=== PATIENT | female | born 1940 | race Caucasian/White ===

== ENCOUNTER 2017-10-19 00:14 | Emergency (ER) | payer MEDICARE, OTHER ==
[2017-10-19] MEDS ORDERED: Diphtheria,Pertussis(Acell),Tetanus Vaccine 0.5 ML SDV IM ONE (01:03)
[2017-10-19] MEDS ORDERED: Acetaminophen 500 MG Tab PO ONE (01:04)
--- NOTE | 2017-10-19 01:10 | EDM.PDOC ---
ED HPI GENERAL MEDICAL PROBLEM - General Chief Complaint: Trauma Stated Complaint: FALL VIA [place] Time Seen by Provider: 10/19/17 00:50 Source of Information: Reports: Patient, Family History Limitations: Reports: No Limitations - History of Present Illness INITIAL COMMENTS - FREE TEXT/NARRATIVE: 77 yo female tripped on the side walk at the [employer] and injured her L wrist/hand and her L knee. Here via EMS with stable vitals. also here. 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) Left Knee/Wrist Pain Score (Numeric/FACES): 8 - Related Data Allergies Allergy/AdvReac Type Severity Reaction Status Date / Time acetaminophen [From Percocet] Allergy Depression Verified 01/24/16 22:23 albuterol Allergy Dizziness Verified 01/24/16 22:23 aspirin Allergy Abdominal Verified 01/24/16 22:23 Pain ciprofloxacin [From Cipro] Allergy Itching Verified 01/24/16 22:23 clarithromycin [From Biaxin] Allergy Dizziness Verified 01/24/16 22:23 desloratadine [From Clarinex] Allergy Rash Verified 01/24/16 22:23 diazepam Allergy Seizure Verified 01/24/16 22:23 diphenhydramine Allergy Other Verified 01/24/16 22:23 [From Benadryl] fentanyl Allergy Headache Verified 01/24/16 22:23 gemifloxacin [From Factive] Allergy Rash Verified 01/24/16 22:23 hydrocodone Allergy Seizure Verified 01/24/16 22:23 ibuprofen [From Motrin] Allergy Hypertensio Verified 01/24/16 22:23 n iodine Allergy Hives Verified 01/24/16 22:23 lansoprazole [From Prevacid] Allergy Nausea Verified 01/24/16 22:23 latex Allergy Redness Verified 01/24/16 22:23 levofloxacin [From Levaquin] Allergy Diarrhea Verified 01/24/16 22:23 midazolam [From Versed] Allergy Headache Verified 01/24/16 22:23 morphine Allergy Vomiting Verified 01/24/16 22:23 nitrofurantoin Allergy Cannot Verified 01/24/16 22:23 [From Macrobid] Remember oxycodone [From Percocet] Allergy Depression Verified 01/24/16 22:23 Penicillins Allergy Nausea Verified 01/24/16 22:23 propoxyphene [From Darvon] Allergy Delusions Verified 01/24/16 22:23 Sulfa (Sulfonamide Allergy Dizziness Verified 01/24/16 22:23 Antibiotics) lotril Allergy Dizziness Uncoded 01/24/16 22:23 Home Meds: Home Meds Cholecalciferol (Vitamin D3) [Vitamin D] 5,000 unit PO DAILY 01/24/16 [History] Cyanocobalamin (Vitamin B12) [Vitamin B13] 500 mcg PO DAILY 01/24/16 [History] Ranitidine HCl [Zantac 75] 75 mg PO BID 01/24/16 [History] Cranberry Conc/Ascorbic Acid [Cranberry 12,600 mg Softgel] 1 each PO DAILY 10/19 [History] Past Medical History HEENT History: Reports: Impaired Vision Gastrointestinal History: Reports: Cholelithiasis, GERD Genitourinary History: Reports: Other (See Below) Other Genitourinary History: uterine 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: Musculoskeletal History: Reports: Other (See Below) Other Musculoskeletal History: left knee torn maniscus Neurological History: Reports: Migraines Oncologic (Cancer) History: Reports: Uterine - Past Surgical History Oncologic Surgical History: Reports: Other (See Below) Social & Family History - Caffeine Use Caffeine Use: Reports: None Review of Systems - Review of Systems Review Of Systems: See Below Constitutional: Reports: No Symptoms Eyes: Reports: No Symptoms Ears: Reports: No Symptoms Nose: Reports: No Symptoms Mouth/Throat: Reports: No Symptoms Respiratory: Reports: No Symptoms Cardiovascular: Reports: No Symptoms GI/Abdominal: Reports: No Symptoms Musculoskeletal: Reports: Joint Pain (L knee and L wrist) Skin: Reports: Wound (abrasion L hand/palm) Neurological: Reports: No Symptoms ED EXAM, GENERAL - Physical Exam Exam: See Below Exam Limited By: No Limitations General Appearance: Alert, WD/WN, No Apparent Distress Eye Exam: Bilateral Eye: Normal Inspection Ears: Normal External Exam, Normal Canal, Hearing Grossly Normal, Normal TMs Ear Exam: Bilateral Ear: Auricle Normal, Canal Normal Nose: Normal Inspection, Normal Mucosa, No Blood Throat/Mouth: Normal Inspection, Normal Lips, Normal Oropharynx, Normal Voice, No Airway Compromise Head: Atraumatic, Normocephalic Neck: Normal Inspection, Supple, Non-Tender Respiratory/Chest: No Respiratory Distress, Lungs Clear, Normal Breath Sounds, No Accessory Muscle Use Cardiovascular: Regular Rate, Rhythm, No Edema GI/Abdominal: Normal Bowel Sounds, Soft, Non-Tender, No Distention Back Exam: Normal Inspection. No: CVA Tenderness (R), CVA Tenderness (L) Extremities: Normal Inspection, No Pedal Edema, Leg Pain (L knee bruising), Other (L wrist pain) Neurological: Alert, Oriented, CN II-XII Intact, Normal Cognition, No Motor/ Sensory Deficits Psychiatric: Normal Affect, Normal Mood Skin Exam: Wound/Incision (abrasion L palm) Lymphatic: No Adenopathy Course - Vital Signs Last Recorded V/S: Last Vital Signs Temp 35.4 C 10/19/17 02:01 Pulse 80 10/19/17 02:01 Resp 16 10/19/17 02:01 BP 135/78 10/19/17 02:01 Pulse Ox 97 10/19/17 02:01 - Orders/Labs/Meds Orders: Active Orders 24 hr Category Date Time Status Vaccines to be Administered [RC] PER UNIT ROUTINE Care 10/19/17 01:03 Active Knee 3V Lt [CR] Stat Exams 10/19/17 01:03 Ordered Wrist Comp Min 3V Lt [CR] Stat Exams 10/19/17 01:03 Ordered Meds: Medications Discontinued Medications Generic Name Dose Route Start Last Admin Trade Name Andreas PRN Reason Stop Dose Admin Acetaminophen 1,000 mg 10/19/17 01:04 Tylenol Extra Strength PO 10/19/17 01:05 ONETIME ONE Diphtheria/Tetanus/Acell Pertussis 0.5 ml 10/19/17 01:03 Adacel IM 10/19/17 01:04 .ONCE ONE - Radiology Interpretation Free Text/Narrative:: L wrist X-ray-neg L knee X-ray-neg Departure - Departure Time of Disposition: 02:10 Disposition: Home, Self-Care 01 Condition: Good Clinical Impression: Contusion of knee, left Qualifiers: Encounter type: initial encounter Qualified Code(s): S80.02XA - Contusion of left knee, initial encounter Hand abrasion Qualifiers: Encounter type: initial encounter Laterality: left Qualified Code(s): S60.512A - Abrasion of left hand, initial encounter - Discharge Information Referrals: PCP,None [Primary Care Provider] - Forms: ED Department Discharge - My Orders Last 24 Hours: My Active Orders 10/19/17 01:03 Vaccines to be Administered [RC] PER UNIT ROUTINE Knee 3V Lt [CR] Stat Wrist Comp Min 3V Lt [CR] Stat - Assessment/Plan Last 24 Hours: My Active Orders 10/19/17 01:03 Vaccines to be Administered [RC] PER UNIT ROUTINE Knee 3V Lt [CR] Stat Wrist Comp Min 3V Lt [CR] Stat
[2017-10-19 02:02] VITALS: BP 135/78
--- NOTE | 2017-10-21 08:47 | CR ---
Knee 3V Lt CLINICAL HISTORY: Left knee pain FINDINGS: No acute fracture or dislocation is noted. There are no osseous lesions. Joint spaces are n arrowed. There is periarticular spurring. Impression: Osteoarthritic change No fracture
--- NOTE | 2017-10-21 08:48 | CR ---
Wrist Comp Min 3V Lt CLINICAL HISTORY: Pain, fall FINDINGS: There is no acute fracture or dislocation within the left wrist. Bones appear osteopenic. There are mild osteoarthritic changes Impression: No fracture
== END 2017-10-19 02:40 | disposition home or self-care (01) ==
LOC: JP.ED 00:14
DX: S80.02XA Contusion of left knee, initial encounter (principal); S60.512A Abrasion of left hand, initial encounter; M25.532 Pain in left wrist; K21.9 Gastro-esophageal reflux disease without esophagitis; W18.40XA Slipping, tripping and stumbling without falling, unspecified, initial encounter; Z79.899 Other long term (current) drug therapy; Z88.6 Allergy status to analgesic agent; Z88.1 Allergy status to other antibiotic agents; Z91.040 Latex allergy status; Z88.0 Allergy status to penicillin; Z88.2 Allergy status to sulfonamides; Z23 Encounter for immunization
CPT/HCPCS: 73110; 73562; 90471; 99284; A9270; 99283

== ENCOUNTER 2023-10-21 00:56 | Emergency (ER) | payer MEDICARE, OTHER ==
[2023-10-21 02:07] LABS: BASOPHILS ABSOLUTE AUTO 0.04 K/uL (0.00-0.10); BASOPHILS PERCENT AUTO 0.4 % (0.1-1.3); EOSINOPHILS ABSOLUTE AUTO 0.11 K/uL (0.00-0.40); HEMATOCRIT 35.4 % (34.3-46.0); HEMOGLOBIN 12.1 g/dL (11.2-15.5); IMMATURE GRAN ABSOLUTE AUTO 0.04 K/uL (0.00-0.23); IMMATURE GRAN PERCENT AUTO 0.4 % (0.0-0.7); LYMPHOCYTES ABSOLUTE AUTO 1.18 K/uL (0.8-3.3); MEAN CORPUSCULAR HEMOGLOBIN 31.9 pg (31.6-35.5); MEAN CORPUSCULAR HGB CONC 34.2 g/dL (31.6-35.5); MEAN CORPUSCULAR VOLUME 93.4 fL (81.4-99.0); MONOCYTES ABSOLUTE AUTO 1.16 K/uL (0.20-0.90); MONOCYTES PERCENT AUTO 10.8 % (3.3-12.6); NEUTROPHILS ABSOLUTE AUTO 8.17 K/uL (1.0-7.6); NEUTROPHILS PERCENT AUTO 76.4 % (40.0-78.1); PLATELET COUNT,PLT 165 K/uL (130-375); RED BLOOD CELL COUNT 3.79 M/uL (3.77-5.24); WHITE BLOOD CELL COUNT,WBC 10.7 K/uL (3.2-11.0)
[2023-10-21] MEDS: Sodium Chloride 0.9% 10 ML Syringe FLUSH PRN (02:14)
[2023-10-21] MEDS: Sodium Chloride 0.9% 1,000 ML IV STA (02:16)
[2023-10-21] MEDS: methylPREDNISolone Sodium Succinate 40 MG/1 ML SDV IVPUSH ONE (02:16)
[2023-10-21 02:26] LABS: A/G RATIO 0.8 (1.2-2.2); ALANINE AMINOTRANSFERASE,ALT 10 U/L (12-78); ALBUMIN 2.8 g/dL (3.4-5.0); ALKALINE PHOSPHATASE 90 U/L (46-116); ASPARTATE AMNIOTRANSFERASE,AST 24 U/L (15-37); BILIRUBIN TOTAL 0.8 mg/dL (0.2-1.0); BLOOD UREA NITROGEN,BUN 13 mg/dL (7-18); CALCIUM 8.7 mg/dL (8.5-10.1); CARBON DIOXIDE,CO2 25 mmol/L (21-32); CHLORIDE,CL 103 mmol/L (100-108); EST CRCL DRUG DOSING (CG) 37.45 mL/min; ESTIMATED GFR 56 mL/min (>60); GLUCOSE RANDOM 131 mg/dL (74-106); POTASSIUM,K 3.8 mmol/L (3.6-5.2); PROTEIN TOTAL,TP 6.3 g/dL (6.4-8.2); SODIUM,NA 138 mmol/L (140-148)
[2023-10-21 02:27] LABS: ANION GAP 13.8 mmol/L (5.0-14.0)
[2023-10-21] MEDS: Sodium Chloride 0.9% 100 ML IV STA (02:44)
[2023-10-21] MEDS: Iopamidol 612 MG/ML 100 ML Bottle IV STA (02:44)
[2023-10-21 02:45] LABS: APPEARANCE,URINE CLEAR (CLEAR); BILIRUBIN,URINE NEGATIVE (NEGATIVE); COLOR,URINE YELLOW (YELLOW); GLUCOSE,URINE NEGATIVE (NEGATIVE); KETONES,URINE NEGATIVE (NEGATIVE); LEUKOCYTE ESTERASE,URINE MODERATE (NEGATIVE); NITRITE,URINE NEGATIVE (NEGATIVE); OCCULT BLOOD,URINE NEGATIVE (NEGATIVE); PH,URINE 6.5 (5.0-8.0); PROTEIN,URINE NEGATIVE (NEGATIVE); UROBILINOGEN,URINE 0.2 EU/dL (0.2-1.0)
[2023-10-21 02:52] LABS: AMORPHOUS SEDIMENT,URINE NOT SEEN; BACTERIA,URINE FEW; EPITHELIAL CELLS,URINE FEW; MUCUS,URINE NOT SEEN; RBC,URINE 0-5 (0-5)
[2023-10-21] MEDS: Meperidine PF 100 MG/ML Syringe IVPUSH ONE (04:02)
[2023-10-21 06:29] VITALS: BP 126/57; PULSE 63
== END 2023-10-21 06:30 | disposition home or self-care (01) ==
LOC: JP.ED 00:56
DX: K57.32 Diverticulitis of large intestine without perforation or abscess without bleeding (principal); I10 Essential (primary) hypertension; Z90.49 Acquired absence of other specified parts of digestive tract; Z90.710 Acquired absence of both cervix and uterus; Z79.899 Other long term (current) drug therapy; Z88.2 Allergy status to sulfonamides; Z88.1 Allergy status to other antibiotic agents; Z88.6 Allergy status to analgesic agent; Z88.5 Allergy status to narcotic agent; Z91.041 Radiographic dye allergy status; Z91.040 Latex allergy status; Z88.0 Allergy status to penicillin; Z88.8 Allergy status to other drugs, medicaments and biological substances
CPT/HCPCS: 36415; 74177; 80053; 81001; 83605; 83690; 85025; 87086; 87088; 87186; 96361; 96374; 96375; 99284; J2175; J2919; J3490; J7030; Q9967